=== PATIENT | female | born 1985 | race Caucasian/White ===

== ENCOUNTER 2017-02-05 13:45 | Day surgery (SDC) | payer OTHER ==
[~2017-02-05] VITALS: Ht 154.9 cm; Wt 88.5 kg
[~2017-02-05 13:45] MED LIST: ALBU8.5H4 IH; ARIP10TA14 PO; CLON0.5T PO; IBUP100T47 PO; NAPROXEN PO; Sumatriptan Succinate SUBQ; TOPI25TA26 PO
[2017-02-05 14:01] VITALS: BP 129/79; PULSE 85; RESP 16; O2SAT 97
[2017-02-05] MEDS ORDERED: fentaNYL-PF 50 mCg/mL 2 mL Inj ONE (14:16)
[2017-02-05] MEDS ORDERED: 0.9% Sodium Chloride 1,000 ML IV ONE ×3 (14:29)
[2017-02-05] MEDS ORDERED: 0.9% Sodium Chloride 1,000 ML IV PRN (14:31)
[2017-02-05] MEDS ORDERED: Sodium Chloride LOK Flush 10 mL Syringe IV PRN (14:35)
[2017-02-05] MEDS ORDERED: fentaNYL-PF 50 mCg/mL 2 mL Inj IVPUSH PRN (14:35)
[2017-02-05 14:57] VITALS: BP 102/67; PULSE 72; RESP 14; O2SAT 99
[2017-02-05 15:26] VITALS: BP 112/62; PULSE 72; RESP 15; O2SAT 99
--- NOTE | 2017-02-05 23:34 | ENDO ---
[address] [address] ENDOSCOPY PROCEDURE PATIENT: BRIDGET TORRE : 1985 MR#: [id number] ADMIT: 02/05/2017 JOB ID: [id number] DATE OF PROCEDURE: 02/05/2017 PRIMARY PROVIDER: Lucien Katz MD. PROCEDURE: Esophagogastroduodenoscopy with biopsies. INDICATIONS: A 31-year-old female with a history of multifocal abdominal pains and a tendency toward diarrhea. EGD is pursued. EQUIPMENT: GIF-H190. SEDATION: 1. Versed 9 mg. 2. Fentanyl 200 mcg. 3. Lidocaine swish and swallow. COMPLICATIONS: None identified. PROCEDURE INFORMATION: After the risks and benefits were explained, written and verbal informed consent was obtained. The patient was brought into the endoscopy suite and placed in the left lateral decubitus position. Sedation was achieved using the above-stated medications with the addition of oxygen via nasal cannula. The scope was introduced into the mouth through the bite block and advanced under direct visualization to the second portion the duodenum. The scope was slowly withdrawn to carefully examine the mucosa for any defects or lesions. Retroflexed views were accomplished in the stomach. The stomach was decompressed. The scope was removed the patient who tolerated the procedure well. FINDINGS: 1. Duodenum: This appeared visually unremarkable from the bulb through to the second portion. Random biopsies were taken from D2 for exclusion of celiac. 2. Stomach: The patient had minimal nonspecific gastropathy and random biopsy was taken for exclusion of Helicobacter or other pathology. Retroflexed views of the LES was otherwise unremarkable. 3. Esophagus: The squamocolumnar junction generally correlated with the top of the gastric folds. No acute erosive changes. No strictures. No mass lesions. ENDOSCOPIC DIAGNOSES: 1. Subtle sliding hiatal hernia (not mentioned above). 2. Minimal gastropathy. RECOMMENDATIONS: 1. Await histopathology. 2. No findings were made today to account for the patient's clinical complaints. She is to follow up on histology and pursue further workup as indicated in GI clinic with Uzma Adame in the next 1-2 weeks.
--- NOTE | 2017-02-07 17:06 | PATH ---
SURGICAL PATHOLOGY Attending Physician:Madison Langley CASE STATUS: Signed Out PATIENT NAME: BRIDGET TORRE PID: [id number] : 1985 DATE COLLECTED:02/05/2017 00:00 SPECIMEN: 1: Duodenum, Biopsy 2: Gastric, Biopsy CLINICAL HISTORY: 1. DUODENAL BXS 2. GASTRIC BXS FINAL DIAGNOSIS: 1. Duodenal Biopsies: Small intestinal mucosa with no diagnostic abnormality. Negative for active inflammation, features of sprue, dysplasia or malignancy. 2. Gastric Biopsy: Gastric body-type mucosa with no diagnostic abnormality. Negative for Helicobacter organisms by H&E stain. Negative for intestinal metaplasia, dysplasia, and malignancy. ICD10: K29.7 GROSS DESCRIPTION: The specimen is received in two formalin filled containers labeled with the patient's name. 1). The specimen is sublabeled "duodenal" and consists of 2 portions of tissue which aggregate to 0.3 x 0.3 x 0.2 CM. The specimen is entirely submitted in cassette 1A. 2). The specimen is sublabeled "gastric" and consists of a 0.3 x 0.3 x 0.2 CM portion of tissue which is entirely submitted in cassette 2A. 02/06/2017 [facility] ICD-9 CODES: CPT CODES: 1: 21129 2: 67264 Electronically Signed Out Stephanie Norton MD [facility] Pathology [facility] [address], [place] [address] Technical component performed at [facility], [address] [place] [address] Ave[address], [place], [address]
== END 2017-02-05 23:59 | disposition home or self-care (01) ==
LOC: END 13:45
PROVIDERS: ATTEND Internal Medicine Gastroenterology
DX: K31.9 Disease of stomach and duodenum, unspecified (principal); K44.9 Diaphragmatic hernia without obstruction or gangrene; R19.7 Diarrhea, unspecified; K59.00 Constipation, unspecified; R01.1 Cardiac murmur, unspecified
CPT/HCPCS: 43239; 99153; G0500; J2250; J3010; J7030